=== PATIENT | female | born 1940 | race Hispanic/Latino ===

== ENCOUNTER → 2018-09-11 | Outpatient (CLI) | payer MEDICARE ==
--- NOTE | 2018-09-11 13:50 | Diagnostic Imaging Report ---
Exam: Righthip series, 2 views. History: Osteoarthritis Comparison: None Findings: No acute fracture or dislocation. Alignment is anatomic. There are mild degenerative changes of the right hip joint with joint space narrowing and osteophyte formation. Impression: Mild right hip degenerative changes. No acute osseous injury. Signed by: Susan Kapadia MD on 09/11/2018 1:46 PM
== END ==
LOC: RAD 12:55
PROVIDERS: ATTEND Internal Medicine
DX: M16.11 Unilateral primary osteoarthritis, right hip (principal)